=== PATIENT | male | born 1970 | race Caucasian/White ===

== ENCOUNTER 2024-04-03 20:04 | Emergency (ER) | payer SELFPAY ==
[~2024-04-03] VITALS: Ht 182.9 cm; Wt 107.0 kg
[2024-04-03 20:17] VITALS: BP 129/75; PULSE 75; RESP 18; TEMP 97.6; O2SAT 97
== END 2024-04-03 21:25 | disposition left against medical advice (07) ==
LOC: ER 20:04
DX: R19.7 Diarrhea, unspecified (principal); Z53.21 Procedure and treatment not carried out due to patient leaving prior to being seen by health care provider